=== PATIENT | male | born 1965 | race Asian ===

== ENCOUNTER 2024-06-02 11:56 | Outpatient (RCR) | payer BC, SELFPAY | END 2024-06-02 23:59 | disposition home or self-care (01) | LOC: ROT 11:56 | PROVIDERS: ATTENDING PHYSICIAN Orthopaedic Surgery Hand Surgery; FAMILY PHYSICIAN Family Medicine | DX: Z47.89 Encounter for other orthopedic aftercare (principal); M18.12 Unilateral primary osteoarthritis of first carpometacarpal joint, left hand; Z73.6 Limitation of activities due to disability | CPT/HCPCS: 97760 ==